=== PATIENT | female | born 1945 | race African-American/Black ===

== ENCOUNTER 2017-05-25 11:22 | Emergency (ER) | payer MEDICARE, OTHER ==
[~2017-05-25] VITALS: Ht 165.1 cm; Wt 88.0 kg
[~2017-05-25 11:22] MED LIST: ACET-2178 PO; AMLO5TAB88 PO; ASPI-518 PO; BISA10SU97; CITA10TA9 PO; CRAN425C6 PO; DONE5TAB7 PO; LISI10TA5 PO; METF750T; MILK OF MAGNESIA PO; RISO02 PO
[2017-05-25 14:22] LABS: BASOPHILS % 1.2 % (0.0-2.0); EOSINOPHILS % 0.4 % (0.0-5.0); HEMATOCRIT. 47.5 % (36.0-48.0); HEMOGLOBIN. 15.7 g/dL (12.0-16.0); LYMPHOCYTES % 18.6 % (20.0-50.0); MEAN CORPUSCULAR HEMOGLOBIN 29.7 pg (28.0-32.0); MEAN CORPUSCULAR VOLUME 90.1 fL (81.0-99.0); MEAN PLATELET VOLUME 8.5 fl (7.4-10.4); MONOCYTES % 6.7 % (2.0-8.0); NEUTROPHILS % 73.1 % (40.0-76.0); PLATELET 199 x1000/uL (130-400); RED BLOOD CELL COUNT 5.27 mill/uL (4.2-5.4); RED CELL DISTRIBUTION WIDTH 18.3 % (11.6-14.6)
[2017-05-25 14:27] LABS: CHLORIDE 112 mEq/L (98-107); INR 1.2; PROTHROMBIN TIME 12.7 sec (9.4-11.6)
[2017-05-25 15:34] LABS: CLARITY URINE CLOUDY (CLEAR); COLOR URINE DARK YELLOW (YELLOW); KETONES URINE 1+ (NEGATIVE); LEUKOCYTE ESTERASE URINE NEGATIVE (NEGATIVE); NITRITE URINE NEGATIVE (NEGATIVE); OCCULT BLOOD URINE TRACE (NEGATIVE); PH URINE 5.5 (4.5-8.0); PROTEIN URINE 1+ (NEGATIVE); SPECIFIC GRAVITY URINE 1.038 (1.005-1.030)
[2017-05-25 16:23] VITALS: BP 126/68
== END 2017-05-25 16:34 | disposition home or self-care (01) ==
LOC: ER 12:21
DX: M79.672 Pain in left foot (principal); G89.29 Other chronic pain; F03.90 Unspecified dementia, unspecified severity, without behavioral disturbance, psychotic disturbance, mood disturbance, and anxiety; I10 Essential (primary) hypertension; E11.9 Type 2 diabetes mellitus without complications; Z79.82 Long term (current) use of aspirin
CPT/HCPCS: 36415; 80053; 81003; 83690; 85025; 85610; 99284